=== PATIENT | male | born 1955 | race Caucasian/White ===

== ENCOUNTER 2021-05-04 20:55 | Inpatient (IN) ==
[2021-05-04] MEDS ORDERED: SODIUM CHLORIDE 0.9% 1000ML 1,000 ML IV STA (23:03)
--- NOTE | 2021-05-04 23:09 | Emergency Department Note ---
History of Present Illness General Chief complaint: Shortness of Breath/Dyspnea Stated complaint: SOB, COVID + Time Seen by Provider: 05/04/21 22:49 Source: patient and old records reviewed Mode of arrival: ambulatory Limitations: no limitations History of Present Illness This patient is 65-year-old male who was diagnosed with Covid yesterday comes in with increasing shortness of breath. He had both Covid vaccines from [facility]. He started feeling sick about a week ago with a cough and fever and shortness of breath the cough is resolved he just short of breath he has fevers intermittently he thinks he is keeping up with his fluids but is very nauseated. No abdominal pain no chest pain. He feels body aches. He has no underlying lung disease. No sick contacts although several people at [facility] had Covid Home Medications Medication Instructions Recorded Confirmed Type atorvastatin 80 mg tablet 80 mg PO HS 05/04/21 05/05/21 History glipizide 5 mg tablet 10 mg PO BID 05/04/21 05/05/21 History hydrocodone 5 mg-acetaminophen 325 1 tab PO Q6 PRN 05/04/21 05/05/21 History mg tablet levofloxacin 750 mg tablet 750 mg PO DAILY 05/04/21 05/05/21 History metformin 1,000 mg tablet 1,000 mg PO BID 05/04/21 05/05/21 History pregabalin 50 mg capsule 50 mg PO BID 05/04/21 05/05/21 History sitagliptin 100 mg tablet (Januvia) 100 mg PO DAILY 05/04/21 05/05/21 History Allergies Allergy/AdvReac Type Severity Reaction Status Date / Time No Known Allergies Allergy Unverified 05/04/21 23:29 Past Med/Surg History Medical History DMII (diabetes mellitus, type 2) LEONA (obstructive sleep apnea) Osteoarthritis of right knee Peripheral neuropathy Surgical History No history of previous surgery Family History Other Family history non-contributory Social History Smoking Status: Never smoker Hx Alcohol Use: No Hx Substance Use: No Preferred Language: Greek Communication Ability: Effective Beliefs That Will Affect Care: None Current Living Situation: Spouse Feels Safe at Home: Yes Safety Concerns: Feels Safe At This Time Assistive Devices: None Review of Systems A total of 10 systems reviewed and were otherwise negative Physical Exam Vital Signs Vital Signs - 24 hr 05/04/21 21:00 05/04/21 23:30 05/05/21 00:01 Temperature 36.9 C Temperature Source Temporal Artery Scan Pulse Rate 100 H 81 89 Pulse Rate from SpO2 Sensor 82 89 Pulse Rhythm Regular Pulse Strength Normal Respiratory Rate 22 48 H 24 Blood Pressure 123/77 111/60 116/77 Blood Pressure Mean 92 77 90 Blood Pressure Position Sitting Pulse Oximetry 94 96 96 Oxygen Delivery Method Room Air Sepsis Recent Fever Within 48 Hours No Sepsis New/Unexplained Change in Mental Status N/A Sepsis Action Taken by Nursing No Action Required 05/05/21 00:32 05/05/21 01:00 05/05/21 01:30 Temperature Temperature Source Pulse Rate 102 H 79 78 Pulse Rate from SpO2 Sensor 79 78 Pulse Rhythm Pulse Strength Respiratory Rate 20 20 20 Blood Pressure 174/88 H 135/70 124/71 Blood Pressure Mean 116 91 88 Blood Pressure Position Pulse Oximetry 96 96 Oxygen Delivery Method Sepsis Recent Fever Within 48 Hours Sepsis New/Unexplained Change in Mental Status Sepsis Action Taken by Nursing 05/05/21 02:00 05/05/21 02:30 05/05/21 03:01 Temperature Temperature Source Pulse Rate 85 81 83 Pulse Rate from SpO2 Sensor 86 82 85 Pulse Rhythm Pulse Strength Respiratory Rate 17 22 29 H Blood Pressure 120/60 127/57 L 135/81 Blood Pressure Mean 80 80 99 Blood Pressure Position Pulse Oximetry 94 97 97 Oxygen Delivery Method Sepsis Recent Fever Within 48 Hours Sepsis New/Unexplained Change in Mental Status Sepsis Action Taken by Nursing 05/05/21 03:30 Temperature Temperature Source Pulse Rate 71 Pulse Rate from SpO2 Sensor 70 Pulse Rhythm Pulse Strength Respiratory Rate 25 H Blood Pressure 108/59 L Blood Pressure Mean 75 Blood Pressure Position Pulse Oximetry 97 Oxygen Delivery Method Sepsis Recent Fever Within 48 Hours Sepsis New/Unexplained Change in Mental Status Sepsis Action Taken by Nursing General: Well developed well nourished older male who appears mildly tachypneic but otherwise in no acute distress, on room air. Normal speech HEENT: Normal cephalic atraumatic. Pupils are equal round and reactive to light. Extraocular movements are intact. Oropharynx is pink with moist mucous membranes. No swelling of the mouth lips or tongue. Neck: Supple with a midline trachea. No meningeal signs or stiffness, no JVD or bruits. No Stridor. Chest: Clear to auscultation bilaterally. No wheezes or rhonchi. No increased work of breathing. Heart: Regular rate and rhythm without murmurs or gallops. Abdomen: Soft nontender, nondistended without rebound guarding or rigidity. Extremities: No cyanosis clubbing or edema. No calf tenderness or assymetry Spine/Back. Non tender to palpation. No CVA tenderness Skin: Good turgor without rashes. Neurologic exam: Cranial nerves two through 12 are intact. Motor and sensation are intact and symmetrical throughout. Course Administered Medications Insulin Aspart (Insulin Aspart 100 Units/Ml 3 Ml Pen) 0 units SC ACHS GABRIELA Stop: 06/04/21 13:48 Last Admin: 05/05/21 17:55 Dose: 3 units Documented by: [id number] Cosigned by: [id number] Admin: 05/05/21 16:13 Dose: Not Given Documented by: [id number] Insulin Glargine (Insulin Glargine Solostar 100 Units/Ml 3 Ml Pen) 15 units SC BID GABRIELA Stop: 06/04/21 13:59 Last Admin: 05/05/21 17:55 Dose: 15 units Documented by: [id number] Cosigned by: [id number] Pregabalin (Pregabalin 50 Mg Cap) 50 mg PO BID GABRIELA Stop: 06/04/21 13:48 Last Admin: 05/05/21 15:16 Dose: 50 mg Documented by: [id number] Discontinued Medications Sodium Chloride (Nss 1000ml) 1,000 mls @ 999 mls/hr IV .Q1H1M STA Stop: 05/05/21 00:03 Last Infusion: 05/05/21 02:41 Dose: 0 mls/hr Documented by: [id number] Admin: 05/04/21 23:29 Dose: 999 mls/hr Documented by: [id number] Ioversol (Optiray 320 125ml) 119 ml IV ONCE ONE Stop: 05/05/21 02:20 Last Admin: 05/05/21 02:19 Dose: 119 ml Documented by: [id number] Medical Decision Making Differential Diagnosis Covid, PE, cardiac disease, myocarditis/pericarditis, sepsis, electrolyte or metabolic abnormality, dehydration Medical Records Attestation: I reviewed the patient's medical records. Home Medications Current Medication List: was personally reviewed by me Laboratory Data Attestation: I reviewed the patient's lab results. Result diagrams: 05/04/21 Unknown 05/04/21 Unknown Lab Results 05/04/21 05/04/21 05/04/21 Range/Units 23:30 23:30 Unknown WBC (4.8-10.8) K/uL RBC (4.7-6.1) M/uL Hgb (14.0-18.0) g/dL Hct (42-52) % MCV (80-100) fL MCH (25-34) pg MCHC (32-36) g/dL RDW Std Deviation (36.4-46.3) fL RDW Coeff of Lori (11.5-14.5) % Plt Count (130-400) K/uL MPV (7.4-10.4) fL Immature Gran % (Auto) % Neut % (Auto) % Lymph % (Auto) % [place] % (Auto) % Eos % (Auto) % Baso % (Auto) % Neut # (Auto) (1.4-6.5) K/uL Lymph # (Auto) (1.2-3.4) K/uL [place] # (Auto) (0.11-0.59) K/uL Eos # (Auto) (0-0.5) K/uL Baso # (Auto) (0-0.2) K/uL Immature Gran # (Auto) (0.00-0.02) K/uL APTT 26.5 (21.0-31.0) Seconds PTT Ratio 1.0 D-Dimer 1500 H* (0-500) ug/L FEU Sodium (136-145) mmol/L Potassium (3.5-5.1) mmol/L Chloride (98-107) mmol/L Carbon Dioxide (21-32) mmol/L Anion Gap (3-11) BUN (7-18) mg/dl Creatinine (0.6-1.4) mg/dl Est Cr Clr Drug Dosing Est GFR ( Amer) ml/min Est GFR (Non-Af Amer) ml/min BUN/Creatinine Ratio (10-20) Glucose (70-99) mg/dl Calcium (8.5-10.1) mg/dl Total Bilirubin (0.2-1) mg/dl AST (15-37) U/L ALT (12-78) U/L Alkaline Phosphatase (45-117) U/L Troponin I (0-0.045) ng/ml NT-Pro-B Natriuret Pep (0-900) pg/ml Total Protein (6.4-8.2) gm/dl Albumin (3.4-5.0) gm/dl Globulin (2.5-4.0) gm/dl Albumin/Globulin Ratio (0.9-2) Lipase (73-393) U/L COVID-19 Eval Order Covid19 at [facility] SARS-CoV-2 (PCR) POSITIVE A* (Negative) 05/04/21 05/04/21 05/04/21 Range/Units Unknown Unknown Unknown WBC 9.26 (4.8-10.8) K/uL RBC 4.62 L (4.7-6.1) M/uL Hgb 12.7 L (14.0-18.0) g/dL Hct 37.2 L (42-52) % MCV 80.5 (80-100) fL MCH 27.5 (25-34) pg MCHC 34.1 (32-36) g/dL RDW Std Deviation 42.8 (36.4-46.3) fL RDW Coeff of Lori 14.5 (11.5-14.5) % Plt Count 326 (130-400) K/uL MPV 9.6 (7.4-10.4) fL Immature Gran % (Auto) 0.3 % Neut % (Auto) 84.6 % Lymph % (Auto) 7.1 % [place] % (Auto) 7.8 % Eos % (Auto) 0.1 % Baso % (Auto) 0.1 % Neut # (Auto) 7.83 H (1.4-6.5) K/uL Lymph # (Auto) 0.66 L (1.2-3.4) K/uL [place] # (Auto) 0.72 H (0.11-0.59) K/uL Eos # (Auto) 0.01 (0-0.5) K/uL Baso # (Auto) 0.01 (0-0.2) K/uL Immature Gran # (Auto) 0.03 H (0.00-0.02) K/uL APTT Cancelled (21.0-31.0) Seconds PTT Ratio Cancelled D-Dimer (0-500) ug/L FEU Sodium 129 L (136-145) mmol/L Potassium 3.5 (3.5-5.1) mmol/L Chloride 99 (98-107) mmol/L Carbon Dioxide 19 L (21-32) mmol/L Anion Gap 11.0 (3-11) BUN 19 H (7-18) mg/dl Creatinine 1.06 (0.6-1.4) mg/dl Est Cr Clr Drug Dosing Not Reportable Est GFR ( Amer) 83.8 ml/min Est GFR (Non-Af Amer) 72.3 ml/min BUN/Creatinine Ratio 18.1 (10-20) Glucose 172 H (70-99) mg/dl Calcium 8.6 (8.5-10.1) mg/dl Total Bilirubin 0.8 (0.2-1) mg/dl AST 32 (15-37) U/L ALT 24 (12-78) U/L Alkaline Phosphatase 91 (45-117) U/L Troponin I < 0.015 (0-0.045) ng/ml NT-Pro-B Natriuret Pep 47 (0-900) pg/ml Total Protein 7.4 (6.4-8.2) gm/dl Albumin 2.7 L (3.4-5.0) gm/dl Globulin 4.7 H (2.5-4.0) gm/dl Albumin/Globulin Ratio 0.6 L (0.9-2) Lipase 343 (73-393) U/L COVID-19 Eval Order SARS-CoV-2 (PCR) (Negative) Imaging Data Attestation: I personally reviewed and interpreted this imaging study as follows: My Impression: Chest x-raymild increased ischial markings bilaterally inferiorly likely consistent with Covid Radiologist's Impression: Chest X-Ray 05/04/21 23:03 SINGLE VIEW CHEST CLINICAL HISTORY: Atypical chest pain. Covid. FINDINGS: An AP, portable, upright chest radiograph is compared to study dated 10/07/2014. The examination is degraded by portable technique and apical lordotic positioning. The heart is enlarged. The pulmonary vasculature is noncongested. There is chronic elevation of the right hemidiaphragm. There are subtle subpleural and bibasilar airspace opacities. No large pleural effusion or pneumothorax is seen. The skeletal structures are osteopenic. The bony thorax is grossly intact. IMPRESSION: 1. There are subtle bilateral airspace opacities, likely corresponding to the reported history of a viral pneumonia. Clinical correlation will be required and radiographic follow-up to resolution is recommended. 2. Cardiomegaly without radiographic evidence of congestive failure. ACT 112: Negative or not required by law. Electronically signed by: Zak Lee M.D. 05/05/2021 7:39 AM Chest CTA 05/05/21 00:28 CT ANGIOGRAM OF THE CHEST CLINICAL HISTORY: Atypical chest pain. Dyspnea. Covid. COMPARISON STUDY: Chest x-ray dated 05/04/2021. TECHNIQUE: Following the IV administration of 119 cc of Optiray 320, CT angiogram of the chest was performed from the upper abdomen to the thoracic inlet utilizing the pulmonary embolus protocol. Images are reviewed in the axial, sagittal, and coronal planes. 3-D MIPS images are created and assessed. IV contrast was administered without complication. A dose lowering technique was utilized adhering to the principles of ALARA. CT DOSE: 342.82 mGy.cm FINDINGS: Thyroid: Imaged portions of the thyroid gland are normal in size and attenuation. Thoracic aorta: The thoracic aorta is normal in caliber and demonstrates standard 3-vessel arch anatomy. No dissection is seen. Pulmonary vasculature: The pulmonary trunk is normal in caliber. There are no filling defects identified in main, lobar, or segmental pulmonary branches to suggest pulmonary embolus. Heart: The heart is enlarged and without pericardial effusion. Lungs and pleural spaces: There is multifocal groundglass consolidation seen throughout both lungs with a subpleural and lower lobe predominance. No pleural effusion is identified. The trachea and central airways are clear. There is a 4 mm left apical pulmonary nodule seen on image #213. Mediastinum: Scattered subcentimeter mediastinal lymph nodes are not pathologically enlarged by size criteria. Josette: There are calcified left hilar nodes. Prominent hilar nodes measure up to 11 mm in short axis. These are likely reactive. Axillae: There is no axillary lymphadenopathy. Upper abdomen: There is a small to moderate hiatal hernia. Numerous calcified granulomas are present in the spleen. Skeletal structures: No lytic or blastic bony lesions are seen. IMPRESSION: 1. There is no evidence of pulmonary embolus in the main, lobar, or segmental pulmonary arteries. 2. Multifocal groundglass consolidation is consistent with the reported history of a viral pneumonia. Radiographic follow-up to resolution is recommended. 3. A 4 mm pulmonary nodule is noted at the left apex. This is pathologically indeterminant and can be followed as per the Fleischner criteria if clinically warranted. See below. 4. Cardiomegaly. 5. Additional findings as above. Please refer to below summary of Fleischner criteria recommendations for follow- up of incidental CT nodules (Jacob Rucker, Guidelines for management of small pul monary nodules detected on CT scans: A statement from the Fleischner Society, Radiology 237: [phone].) SOLID NODULES Solitary nodule size: <6 mm * low risk patients: no follow-up needed * high risk patients: optional CT at 12 months Solitary nodule size: 6-8 mm * low risk patients: follow-up at 6-12 months, then consider further follow-up at 18-24 months * high risk patients: initial follow-up CT at 6-12 months and then at 18-24 months if no change Solitary nodule size: >8 mm * either low or high risk patients - consider follow-up CT at 3 months, and/or CT-PET, and/or biopsy Multiple nodules size: <6 mm * low risk patients: no routine follow-up * high risk patients: optional CT at 12 months Multiple nodules size: 6-8 mm * low risk patients: follow-up at 3-6 months, then consider further follow-up at 18-24 months * high risk patients: follow-up at 3-6 months, then at 18-24 months if no change Multiple nodules size: >8 mm * low risk patients: follow-up at 3-6 months, then consider further follow-up at 18-24 months * high risk patients: follow-up at 3-6 months, then at 18-24 months if no change Note: newly detected indeterminate nodule in persons 35 years of age or older. * low risk patients: minimal or absent history of smoking and/or other known risk factors * high risk patients: history of smoking or of other known risk factors (e.g. first degree relative with lung cancer, or exposure to asbestos, radon, uranium) * if a nodule up to 8 mm is partly solid or is ground glass further follow-up is required after 24 months to exclude possible slow growing adenocarcinoma (GENI) SUBSOLID NODULES Solitary pure ground-glass nodule * nodule size <6 mm - no CT follow-up required * nodule size >=6 mm - follow-up CT at 6-12 months, then every 2 years until 5 years Solitary part-solid nodule * nodule size <6 mm - no CT follow-up required * nodule size >=6 mm - follow-up CT at 3-6 months. If unchanged, and solid component remains <6 mm, then annual follow-up for 5 years Multiple subsolid nodules * nodule size <6 mm - follow-up CT at 3-6 months, consider further follow-up at 2 and 4 years if stable * nodule size >=6 mm - follow-up CT at 3-6 months, subsequent management based on the most suspicious nodule(s) ACT 112: Negative or not required by law. Electronically signed by: Zak Lee M.D. 05/05/2021 8:03 AM ECG Data Attestation: I personally reviewed and interpreted this ECG as follows: Indication: + SOB/dyspnea Rate (beats per minute): 86 Rhythm: + normal sinus ECG Intervals/blocks: + Normal QRS, + Normal QT and + Normal [place] ECG [place]: + Normal ECG ST segments: + Normal ST segments ECG Findings: no PACs or no PVCs Comparison ECG Date: from (10/17/14) Change: no significant change MDM Narrative This patient comes in as described above he has a history of recently being diagnosed with Covid. He did have the vaccine. On my exam he does appear to be tachypneic. IV access was established and she was hydrated with a 500 cc IV normal saline bolus. chest x-ray, multiple blood testing was obtained as well as EKG. He was reassessed frequently. His chest x-ray shows some increased interstitial markings in the base and also perihilar likely consistent with Covid. EKG does not show any ischemic changes troponin is negative. he has no significant electrolyte or metabolic abnormalities. D-dimer is elevated at 1500. I did order a CTA and there is no evidence of PE but there are diffuse findings consistent with Covid. Despite him vital signs looking okay he does seem to be tachypneic and does not look well I am concerned about sending him home and I have asked Dr. Coffey to see him for admission/observation. Continuous cardiac monitoring: Orders placed in EMR for continuous cardiac monitoring normal sinus rhythm with a rate of 85 Impression & Plan COVID, SOB (shortness of breath) Discharge Plan Visit Data Chief Complaint: Shortness of Breath/Dyspnea Stated Complaint: SOB, COVID + ED Provider: [facility] Discharge Problem: COVID, SOB (shortness of breath) Patient Disposition: Admitted As Inpatient Discharge Instructions Interventions: ED Discharge Assessment Last Done: 05/05/21 17:31
[2021-05-04 23:48] LABS: Basophils # (auto) 0.01 K/uL (0-0.2); Basophils % (auto) 0.1 %; Eosinophils # (auto) 0.01 K/uL (0-0.5); Eosinophils % (auto) 0.1 %; Hematocrit (blood only) 37.2 % (42-52); Hemoglobin 12.7 g/dL (14.0-18.0); Immature Granulocytes # (auto) 0.03 K/uL (0.00-0.02); Immature Granulocytes % (auto) 0.3 %; Lymphocytes # (auto) 0.66 K/uL (1.2-3.4); Lymphocytes % (auto) 7.1 %; Mean Corpuscular Hemoglobin 27.5 pg (25-34); Mean Corpuscular Hgb Conc 34.1 g/dL (32-36); Mean Corpuscular Volume 80.5 fL (80-100); Mean Platelet Volume 9.6 fL (7.4-10.4); Monocytes # (auto) 0.72 K/uL (0.11-0.59); Monocytes % (auto) 7.8 %; Neutrophils # (auto) 7.83 K/uL (1.4-6.5); Neutrophils % (auto) 84.6 %; Platelet Count 326 K/uL (130-400); RDW Coefficient of Variation 14.5 % (11.5-14.5); RDW Standard Deviation 42.8 fL (36.4-46.3); Red Blood Count 4.62 M/uL (4.7-6.1); White Blood Count 9.26 K/uL (4.8-10.8)
[2021-05-05 00:06] LABS: Partial Thromboplastin Time 26.5 Seconds (21.0-31.0)
[2021-05-05 00:09] LABS: Albumin Level 2.7 gm/dl (3.4-5.0); BUN Creatinine Ratio 18.1 (10-20); Bilirubin,Total 0.8 mg/dl (0.2-1); Blood Urea Nitrogen 19 mg/dl (7-18); Calcium 8.6 mg/dl (8.5-10.1); Carbon Dioxide 19 mmol/L (21-32); Chloride 99 mmol/L (98-107); Est GFR (African American) 83.8 ml/min; Est GFR (Non-African American) 72.3 ml/min; Glucose 172 mg/dl (70-99); Lipase 343 U/L (73-393); Potassium 3.5 mmol/L (3.5-5.1); Sodium 129 mmol/L (136-145)
[2021-05-05 00:15] LABS: Alanine Aminotransferase 24 U/L (12-78); Albumin Globulin Ratio 0.6 (0.9-2); Alkaline Phosphatase 91 U/L (45-117); Aspartate Aminotransferase 32 U/L (15-37); Globulin 4.7 gm/dl (2.5-4.0); Total Protein 7.4 gm/dl (6.4-8.2); Troponin I < 0.015 ng/ml (0-0.045)
[2021-05-05 00:20] LABS: D Dimer 1500 ug/L FEU (0-500)
[2021-05-05 00:56] LABS: NT Pro B Type Natriuretic Pept 47 pg/ml (0-900)
[2021-05-05] MEDS ORDERED: OPTIRAY 320 125ml IV ONE (02:19)
--- NOTE | 2021-05-05 03:49 | History & Physical Report ---
Date of Service May 05, 2021 Assessment & Plan (1) Pneumonia due to COVID-19 virus: Plan: Pneumonia present on chest x-ray. With worsening tachypnea and pleurisy and overall clinical picture, despite the fact patient is not hypoxic, will bring him in for observation. Encourage patient to prone. No indication for steroids or remdesivir at this time. Supportive care as needed with Motrin, cough syrup etc. notably here appears euvolemic on exam (2) Hyponatremia: Plan: Sodium 129 probably related to poor p.o. intake. He received 500 cc of normal saline in the ER. Trend BMP. Supportive care during this Covid pneumonia illness. P.o. intake likely to be low especially with loss of taste sensation. (3) DMII (diabetes mellitus, type 2): Plan: Complicated by peripheral neuropathy. A1c pending. Hold p.o. medications and use basal bolus insulin while hospitalized. (4) DVT prophylaxis: Plan: Lovenox Full code Disposition-to Covid unit Kayla Coffey DO [facility] Hospitalist History of Present Illness Chief Complaint: worsening breathing Primary Care Provider: Tanisha Goodrich DO Symptoms of COVID-19 began last week with shortness of breath, chest pain, fever and cough. Denies diarrhea, headache. Reports a loss of sense of taste and loss of appetite. No vomiting or nausea. Pleurisy present. Went to see his primary care doctor yesterday and received levofloxacin for pneumonia. He did take 1 dose. Tested positive for SARS-CoV-2 infection. Notably is also sick with symptoms at home and is wheelchair-bound. He did receive a Covid vaccination series. In the ER the patient was observed to be tachypneic. EKG reveals normal sinus rhythm. No electrolyte or metabolic abnormalities on work-up. D-dimer was elevated at 1500. A CT chest was performed revealing no evidence of pulmonary emboli. Allergies Allergy/AdvReac Type Severity Reaction Status Date / Time No Known Allergies Allergy Unverified 05/04/21 23:29 Home Medications Medication Instructions Recorded Confirmed Type atorvastatin 80 mg tablet 80 mg PO HS 05/04/21 05/05/21 History glipizide 5 mg tablet 10 mg PO BID 05/04/21 05/05/21 History hydrocodone 5 mg-acetaminophen 325 1 tab PO Q6 PRN 05/04/21 05/05/21 History mg tablet levofloxacin 750 mg tablet 750 mg PO DAILY 05/04/21 05/05/21 History metformin 1,000 mg tablet 1,000 mg PO BID 05/04/21 05/05/21 History pregabalin 50 mg capsule 50 mg PO BID 05/04/21 05/05/21 History sitagliptin 100 mg tablet (Januvia) 100 mg PO DAILY 05/04/21 05/05/21 History Past Med/Surg History Medical History DMII (diabetes mellitus, type 2) LEONA (obstructive sleep apnea) Osteoarthritis of right knee Peripheral neuropathy Surgical History No history of previous surgery Family History Other Family history non-contributory Social History Smoking Status: Never smoker Preferred Language: Setswana Feels Safe at Home: Yes Review of Systems Review of Systems: At least ten systems were reviewed and negative except as indicated in HPI above. Physical Exam Physical Exam: CONSTITUTIONAL: WNWD, vitals as above, generally ill- appearing, NAD EYES: EOMI bilaterally, PERRL, normal conjunctivae, no scleral icterus ENT: external ear and nose normal, oropharynx clear, MMM NECK: trachea midline RESPIRATORY: occasional crackles yumi at bases, no rales or wheezes, normal to slightly increased respiratory effort CARDIOVASCULAR: regular rate and rhythm, S1 and 2 heard without murmurs, gallops or rubs, no JVD, no peripheral edema CHEST: inspection of chest was normal GASTROINTESTINAL: soft, nontender, ND, no guarding MUSCULOSKELETAL: strength 5/5 throughout, head is normocephalic and atraumatic SKIN: warm and dry NEUROLOGIC: CN 2-12 grossly intact, no sensory deficit, normal cognition, normal speech, no tremor PSYCHIATRIC: alert cooperative and oriented to person, place and time. Results & Data Results & Data ([facility]) Vital Signs (Past 12 Hours) Vital Signs Temp Pulse Resp BP Pulse Ox 05/05/21 02:00 85 17 120/60 94 05/05/21 01:30 78 20 124/71 96 05/05/21 01:00 79 20 135/70 96 05/05/21 00:32 102 H 20 174/88 H 05/05/21 00:01 89 24 116/77 96 05/04/21 23:30 81 48 H 111/60 96 05/04/21 21:00 36.9 C 100 H 22 123/77 94 Laboratory Results Short CBC 05/04/21 Range/Units Unknown WBC 9.26 (4.8-10.8) K/uL Hgb 12.7 L (14.0-18.0) g/dL Hct 37.2 L (42-52) % Plt Count 326 (130-400) K/uL BMP 05/04/21 Unknown Sodium 129 L Potassium 3.5 Chloride 99 Carbon Dioxide 19 L BUN 19 H Creatinine 1.06 Glucose 172 H Calcium 8.6 Cardiac Enzymes 05/04/21 Range/Units Unknown Troponin I < 0.015 (0-0.045) ng/ml Liver Function 05/04/21 Range/Units Unknown Total Bilirubin 0.8 (0.2-1) mg/dl AST 32 (15-37) U/L ALT 24 (12-78) U/L Alkaline Phosphatase 91 (45-117) U/L Albumin 2.7 L (3.4-5.0) gm/dl Diagnostic Findings A CT chest was performed revealing no evidence of pulmonary emboli Code Status & VTE Plan VTE Prophylaxis Plan VTE Prophylaxis will be ordered: Yes
--- NOTE | 2021-05-05 07:41 | XRay Report ---
SINGLE VIEW CHEST CLINICAL HISTORY: Atypical chest pain. Covid. FINDINGS: An AP, portable, upright chest radiograph is compared to study dated 10/07/2014. The examinat ion is degraded by portable technique and apical lordotic positioning. The heart is enlarged. The pul monary vasculature is noncongested. There is chronic elevation of the right hemidiaphragm. There are subtle subpleural and bibasilar airspace opacities. No large pleural effusion or pneumothorax is seen . The skeletal structures are osteopenic. The bony thorax is grossly intact. IMPRESSION: 1. There are subtle bilateral airspace opacities, likely corresponding to the reported history of a v iral pneumonia. Clinical correlation will be required and radiographic follow-up to resolution is rec ommended. 2. Cardiomegaly without radiographic evidence of congestive failure. ACT 112: Negative or not required by law. Electronically signed by: Zak Lee M.D. 05/05/2021 7:39 AM
--- NOTE | 2021-05-05 08:04 | CT Scan Report ---
CT ANGIOGRAM OF THE CHEST CLINICAL HISTORY: Atypical chest pain. Dyspnea. Covid. COMPARISON STUDY: Chest x-ray dated 05/04/2021. TECHNIQUE: Following the IV administration of 119 cc of Optiray 320, CT angiogram of the chest was pe rformed from the upper abdomen to the thoracic inlet utilizing the pulmonary embolus protocol. Images are reviewed in the axial, sagittal, and coronal planes. 3-D MIPS images are created and assessed. I V contrast was administered without complication. A dose lowering technique was utilized adhering to the principles of ALARA. CT DOSE: 342.82 mGy.cm FINDINGS: Thyroid: Imaged portions of the thyroid gland are normal in size and attenuation. Thoracic aorta: The thoracic aorta is normal in caliber and demonstrates standard 3-vessel arch anato my. No dissection is seen. Pulmonary vasculature: The pulmonary trunk is normal in caliber. There are no filling defects identif ied in main, lobar, or segmental pulmonary branches to suggest pulmonary embolus. Heart: The heart is enlarged and without pericardial effusion. Lungs and pleural spaces: There is multifocal groundglass consolidation seen throughout both lungs wi th a subpleural and lower lobe predominance. No pleural effusion is identified. The trachea and centr al airways are clear. There is a 4 mm left apical pulmonary nodule seen on image #213. Mediastinum: Scattered subcentimeter mediastinal lymph nodes are not pathologically enlarged by size criteria. Josette: There are calcified left hilar nodes. Prominent hilar nodes measure up to 11 mm in short axis. These are likely reactive. Axillae: There is no axillary lymphadenopathy. Upper abdomen: There is a small to moderate hiatal hernia. Numerous calcified granulomas are present in the spleen. Skeletal structures: No lytic or blastic bony lesions are seen. IMPRESSION: 1. There is no evidence of pulmonary embolus in the main, lobar, or segmental pulmonary arteries. 2. Multifocal groundglass consolidation is consistent with the reported history of a viral pneumonia. Radiographic follow-up to resolution is recommended. 3. A 4 mm pulmonary nodule is noted at the left apex. This is pathologically indeterminant and can be followed as per the Fleischner criteria if clinically warranted. See below. 4. Cardiomegaly. 5. Additional findings as above. Please refer to below summary of Fleischner criteria recommendations for follow-up of incidental CT n odules Alexandra Rucker, Guidelines for management of small pulmonary nodules detected on CT scans: A mo durand from the Fleischner Society, Radiology 237: [phone].) SOLID NODULES Solitary nodule size: <6 mm * low risk patients: no follow-up needed * high risk patients: optional CT at 12 months Solitary nodule size: 6-8 mm * low risk patients: follow-up at 6-12 months, then consider further follow-up at 18-24 months * high risk patients: initial follow-up CT at 6-12 months and then at 18-24 months if no change Solitary nodule size: >8 mm * either low or high risk patients - consider follow-up CT at 3 months, and/or CT-PET, and/or biopsy Multiple nodules size: <6 mm * low risk patients: no routine follow-up * high risk patients: optional CT at 12 months Multiple nodules size: 6-8 mm * low risk patients: follow-up at 3-6 months, then consider further follow-up at 18-24 months * high risk patients: follow-up at 3-6 months, then at 18-24 months if no change Multiple nodules size: >8 mm * low risk patients: follow-up at 3-6 months, then consider further follow-up at 18-24 months * high risk patients: follow-up at 3-6 months, then at 18-24 months if no change Note: newly detected indeterminate nodule in persons 35 years of age or older. * low risk patients: minimal or absent history of smoking and/or other known risk factors * high risk patients: history of smoking or of other known risk factors (e.g. first degree relative with lung cancer, or exposure to asbestos, radon, uranium) * if a nodule up to 8 mm is partly solid or is ground glass further follow-up is required after 24 m onths to exclude possible slow growing adenocarcinoma (GENI) SUBSOLID NODULES Solitary pure ground-glass nodule * nodule size <6 mm - no CT follow-up required * nodule size >=6 mm - follow-up CT at 6-12 months, then every 2 years until 5 years Solitary part-solid nodule * nodule size <6 mm - no CT follow-up required * nodule size >=6 mm - follow-up CT at 3-6 months. If unchanged, and solid component remains <6 mm, then annual follow-up for 5 years Multiple subsolid nodules * nodule size <6 mm - follow-up CT at 3-6 months, consider further follow-up at 2 and 4 years if sta ble * nodule size >=6 mm - follow-up CT at 3-6 months, subsequent management based on the most suspiciou s nodule(s) ACT 112: Negative or not required by law. Electronically signed by: Zak Lee M.D. 05/05/2021 8:03 AM
--- NOTE | 2021-05-05 13:47 | Communication Note ---
Date of Service: May 05, 2021 Patient seen and examined Reports cough, shortness of breath, fatigue and some chest pain with coughing Currently on room air Will monitor for now No need for COVID specific therapies at this time Agree with other plans as detailed in H&P by Dr Coffey today
[2021-05-05] MEDS ORDERED: GLUCOSE 10 TABS/TUBE PO PRN (13:49)
[2021-05-05] MEDS ORDERED: HYDROCODONE/ACETAMOPHEN 5/325MG TAB PO PRN (13:49)
[2021-05-05] MEDS ORDERED: CARBOHYDRATES FOR HYPOGLYCEMIA PO PRN (13:49)
[2021-05-05] MEDS ORDERED: ACETAMINOPHEN 325 MG TAB PO PRN (13:49)
[2021-05-05] MEDS ORDERED: DEXTROSE 50% 50 ML SYRINGE IV PRN (13:49)
[2021-05-05] MEDS ORDERED: GLUCOSE 40% GEL 15 GM TUBE PO PRN (13:49)
[2021-05-05] MEDS ORDERED: ONDANSETRON INJ 2 MG/ML 2 ML VIAL IV PRN (13:49)
[2021-05-05] MEDS ORDERED: GLUCAGON FOR INJ 1 MG VIAL SQ PRN (13:49)
[2021-05-05] MEDS: PREGABALIN 50 MG CAP PO SCH ×2 (15:16→22:04)
[2021-05-05] MEDS: INSULIN ASPART 100 UNITS/ML 3 ML PEN SC SCH ×3 (16:13→21:53)
[2021-05-05] MEDS: INSULIN GLARGINE SOLOSTAR 100 UNITS/ML 3 ML PEN SC SCH ×2 (17:55→22:11)
--- NOTE | 2021-05-05 22:27 | Electrocardiogram Report ---
Test Reason : Blood Pressure : / mmHG Vent. Rate : 086 BPM Atrial Rate : 086 BPM P-R Int : 166 ms QRS Dur : 104 ms QT Int : 380 ms P-R-T Axes : 023 -09 048 degrees QTc Int : 454 ms Normal sinus rhythm Normal ECG When compared with ECG of 07-OCT-2014 02:30, No significant change was found Confirmed by Donny Hines ([id number]) on 05/05/2021 10:26:47 PM Referred By: REFERRED SELF Confirmed By:Donny Hines
[2021-05-05] MEDS: ATORVASTATIN 40 MG TAB PO SCH (22:40)
[2021-05-06] MEDS: INSULIN ASPART 100 UNITS/ML 3 ML PEN SC SCH ×4 (08:36→21:34)
[2021-05-06] MEDS: PREGABALIN 50 MG CAP PO SCH ×2 (08:39→21:25)
[2021-05-06] MEDS: INSULIN GLARGINE SOLOSTAR 100 UNITS/ML 3 ML PEN SC SCH ×2 (08:44→21:34)
[2021-05-06 09:20] LABS: Hematocrit (blood only) 38.4 % (42-52); Hemoglobin 13.2 g/dL (14.0-18.0); Mean Corpuscular Hemoglobin 27.3 pg (25-34); Mean Corpuscular Hgb Conc 34.4 g/dL (32-36); Mean Corpuscular Volume 79.5 fL (80-100); Mean Platelet Volume 9.7 fL (7.4-10.4); Platelet Count 479 K/uL (130-400); RDW Coefficient of Variation 14.6 % (11.5-14.5); RDW Standard Deviation 42.1 fL (36.4-46.3); Red Blood Count 4.83 M/uL (4.7-6.1); White Blood Count 9.83 K/uL (4.8-10.8)
[2021-05-06 09:51] LABS: BUN Creatinine Ratio 17.3 (10-20); C Reactive Protein 13.2 mg/dl (0-0.29); Calcium 8.8 mg/dl (8.5-10.1); Creatinine Clr Calc Pharmacy 79.6 ml/min; Est GFR (African American) 95.6 ml/min; Est GFR (Non-African American) 82.5 ml/min; Magnesium 2.3 mg/dl (1.8-2.4); Phosphorus 2.6 mg/dl (2.5-4.9); Potassium 3.2 mmol/L (3.5-5.1)
[2021-05-06 09:58] LABS: Estimated Average Glucose 169 mg/dl; Hemoglobin A1C 7.5 % (4.5-5.6)
[2021-05-06] MEDS: BENZONATATE 100 MG CAPSULE PO SCH ×2 (13:23→21:26)
--- NOTE | 2021-05-06 15:29 | Hospitalist Progress Note ---
Date of Service May 06, 2021 Assessment & Plan (1) Pneumonia due to COVID-19 virus: Plan: Pneumonia present on chest x-ray. With worsening tachypnea and pleurisy and overall clinical picture, despite the fact patient is not hypoxic, will bring him in for observation. Encourage patient to prone. No indication for steroids or remdesivir at this time. Supportive care as needed with Motrin, cough syrup etc. notably here appears euvolemic on exam Has minimal cough and saturating normally on room air CRP is elevated at 13. 2 0 We will repeat it tomorrow as he might be leaving the hospital tomorrow Acute grievance Secondary to loss of his recently Sympathetic care (2) Hyponatremia: Plan: Sodium 129 probably related to poor p.o. intake. He received 500 cc of normal saline in the ER. Trend BMP. Supportive care during this Covid pneumonia illness. P.o. intake likely to be low especially with loss of taste sensation. Sodium level is 135 as on 05/06/2021 We will supplement potassium (3) DMII (diabetes mellitus, type 2): Plan: Complicated by peripheral neuropathy. A1c -7.5. Hold p.o. medications and use basal bolus insulin while hospitalized. (4) DVT prophylaxis: Plan: Lovenox Full code Disposition-to Covid unit Admission and Anticipated Discharge Date Admission Date: May 06, 2021 Subjective 05/06/2021 The patient was seen and examined in medical telemetry unit and in the Covid room He is very anxious and upset that his yesterday Has been getting cough with shortness of breath on exertion Complaint chest pain with the cough Review of Systems Review of Systems: All systems reviewed and are unremarkable except as noted below Respiratory: Cough with shortness of breath on exertion Physical Exam Physical Exam: Sitting on a chair without any acute distress but is very anxious Constitutional: well developed, well nourished and + ill appearing Eyes: PERRL, conjunctivae normal, anicteric sclerae ENMT: external ear and nose normal, oropharynx normal Neck: trachea midline, no thyromegaly Respiratory: + cough; no respiratory distress Auscultation: + diminished lung sounds (At the bases); no crackles Gastrointestinal (Abdomen): Inspection/Auscultation: abdomen not distended Percussion/Palpation: abdomen soft; abdomen nontender Musculoskeletal: No acute arthritis in any joint Neurologic: Alert, awake and oriented x3 Results & Data Results & Data ([facility]) Vital Signs (Past 12 Hours) Vital Signs Temp Pulse Pulse Resp BP Pulse Ox 05/06/21 12:23 36.3 C L 82 16 119/76 96 05/06/21 07:50 36.6 C 75 18 103/53 L 94 05/06/21 07:24 66 05/06/21 04:00 36.8 C 75 18 105/60 93 Laboratory Results Short CBC 05/06/21 Range/Units 08:43 WBC 9.83 (4.8-10.8) K/uL Hgb 13.2 L (14.0-18.0) g/dL Hct 38.4 L (42-52) % Plt Count 479 H (130-400) K/uL BMP 05/06/21 08:43 Sodium 135 L Potassium 3.2 L Chloride 102 Carbon Dioxide 22 BUN 17 Creatinine 0.95 Glucose 154 H Calcium 8.8 Medications Administered Current Inpatient Medications Acetaminophen (Acetaminophen 325 Mg Tab) 650 mg PO Q4H PRN PRN Reason: Pain or Fever Stop: 06/04/21 13:48 Hydrocodone Bitart/Acetaminophen (Hydrocodone/Acetamophen 5/325mg Tab) 1 tab PO Q6 PRN PRN Reason: Pain Stop: 05/19/21 13:48 Atorvastatin Calcium (Atorvastatin 40 Mg Tab) 80 mg PO HS [facility] Stop: 06/04/21 20:59 Last Admin: 05/05/21 22:40 Dose: 80 mg Documented by: Benzonatate (Benzonatate 100 Mg Capsule) 100 mg PO TID [facility] Stop: 06/05/21 13:59 Last Admin: 05/06/21 13:23 Dose: 100 mg Documented by: Dextrose (Dextrose 50% 50 Ml Syringe) 25 - 50 ml IV UD PRN; Protocol PRN Reason: Hypoglycemia Protocol Stop: 06/04/21 13:48 Glucagon (Glucagon For Inj 1 Mg Vial) 1 mg SQ UD PRN; Protocol PRN Reason: Hypoglycemia Protocol Stop: 06/04/21 13:48 Glucose (Glucose 10 Tabs/Tube) 4 - 8 tabs PO UD PRN; Protocol PRN Reason: Hypoglycemia Protocol Stop: 06/04/21 13:48 Glucose (Glucose 40% Gel 15 Gm Tube) 15 - 30 gm PO UD PRN; Protocol PRN Reason: Hypoglycemia Protocol Stop: 06/04/21 13:48 Guaifenesin (Guaifenesin 600 Mg Tabcr) 1,200 mg PO Q12 [facility] Stop: 06/05/21 20:59 Insulin Aspart (Insulin Aspart 100 Units/Ml 3 Ml Pen) 0 units SC ACHS [facility] Stop: 06/04/21 13:48 Last Admin: 05/06/21 12:20 Dose: Not Given Documented by: Insulin Glargine (Insulin Glargine Solostar 100 Units/Ml 3 Ml Pen) 15 units SC BID [facility] Stop: 06/04/21 13:59 Last Admin: 05/06/21 08:44 Dose: 15 units Documented by: Miscellaneous (Carbohydrates For Hypoglycemia ) 15 - 30 gm PO UD PRN PRN Reason: Hypoglycemia Protocol Stop: 06/04/21 13:48 Ondansetron HCl (Ondansetron Inj 2 Mg/Ml 2 Ml Vial) 4 mg IV Q6H PRN PRN Reason: Nausea Stop: 06/04/21 13:48 Pregabalin (Pregabalin 50 Mg Cap) 50 mg PO BID [facility] Stop: 06/04/21 13:48 Last Admin: 05/06/21 08:39 Dose: 50 mg Documented by:
[2021-05-06] MEDS: guaiFENesin 600 MG TABCR PO SCH (21:24)
[2021-05-06] MEDS: ATORVASTATIN 40 MG TAB PO SCH (21:26)
[2021-05-07] MEDS: guaiFENesin 600 MG TABCR PO SCH ×2 (08:25→22:03)
[2021-05-07] MEDS: PREGABALIN 50 MG CAP PO SCH ×2 (08:26→22:10)
[2021-05-07] MEDS: BENZONATATE 100 MG CAPSULE PO SCH ×3 (08:26→22:03)
[2021-05-07] MEDS: INSULIN GLARGINE SOLOSTAR 100 UNITS/ML 3 ML PEN SC SCH ×2 (08:33→22:25)
[2021-05-07] MEDS: INSULIN ASPART 100 UNITS/ML 3 ML PEN SC SCH ×4 (08:33→22:24)
[2021-05-07 08:51] LABS: BUN Creatinine Ratio 17.4 (10-20); C Reactive Protein 11.4 mg/dl (0-0.29); Calcium 8.7 mg/dl (8.5-10.1); Creatinine Clr Calc Pharmacy 73.8 ml/min; Est GFR (African American) 87.7 ml/min; Est GFR (Non-African American) 75.7 ml/min; Potassium 3.1 mmol/L (3.5-5.1)
[2021-05-07] MEDS: POTASSIUM CHLORIDE CRTAB 20 MEQ TABCR PO STA ×2 (10:19→10:21)
[2021-05-07] MEDS: POTASSIUM CHLORIDE / WTR 10 MEQ/100 ML PLCT IV SCH ×4 (10:52→17:25)
--- NOTE | 2021-05-07 15:47 | Hospitalist Progress Note ---
Date of Service May 07, 2021 Assessment & Plan (1) Pneumonia due to COVID-19 virus: Plan: Pneumonia present on chest x-ray. With worsening tachypnea and pleurisy and overall clinical picture, despite the fact patient is not hypoxic, will bring him in for observation. Encourage patient to prone. No indication for steroids or remdesivir at this time. Supportive care as needed with Motrin, cough syrup etc. notably here appears euvolemic on exam Has minimal cough and saturating normally on room air CRP is elevated at 13.2 0 Complains more cough but saturating normally on room air We will repeat CRP and procalcitonin tomorrow Acute grievance Secondary to loss of his recently Sympathetic care Likely go home tomorrow following PT and OT evaluation (2) Hyponatremia: Plan: Sodium 129 probably related to poor p.o. intake. He received 500 cc of normal saline in the ER. Trend BMP. Supportive care during this Covid pneumonia illness. P.o. intake likely to be low especially with loss of taste sensation. Sodium level is 135 as on 05/06/2021 We will supplement potassium We will give more potassium IV-monitor PRP (3) DMII (diabetes mellitus, type 2): Plan: Complicated by peripheral neuropathy. A1c -7.5. Hold p.o. medications and use basal bolus insulin while hospitalized. (4) DVT prophylaxis: Plan: Lovenox Full code Disposition-to Covid unit Admission and Anticipated Discharge Date Admission Date: May 06, 2021 Subjective 05/06/2021 The patient was seen and examined in medical telemetry unit and in the Covid room He is very anxious and upset that his yesterday Has been getting cough with shortness of breath on exertion Complaint chest pain with the cough 05/07/2021 The patient was seen and examined in medical telemetry unit and in the Covid room He remains weak and lethargic and is very depressed Has cough without any shortness of breath Review of Systems Review of Systems: All systems reviewed and are unremarkable except as noted below Respiratory: Cough with shortness of breath on exertion Physical Exam Physical Exam: Sitting on a chair without any acute distress but is very anxious Constitutional: well developed, well nourished and + ill appearing Eyes: PERRL, conjunctivae normal, anicteric sclerae ENMT: external ear and nose normal, oropharynx normal Neck: trachea midline, no thyromegaly Respiratory: + cough; no respiratory distress Auscultation: + diminished lung sounds (At the bases); no crackles Gastrointestinal (Abdomen): Inspection/Auscultation: abdomen not distended Percussion/Palpation: abdomen soft; abdomen nontender Musculoskeletal: No acute arthritis in any joint Neurologic: Alert, awake and oriented x3 Results & Data Results & Data ([facility]) Vital Signs (Past 12 Hours) Vital Signs Temp Pulse Pulse Resp BP Pulse Ox 05/07/21 15:31 96 H 05/07/21 11:00 36.5 C 85 20 119/75 93 05/07/21 07:36 74 05/07/21 07:00 37.1 C 82 18 115/74 95 05/07/21 04:00 37.2 C 80 18 125/72 92 Laboratory Results [facility] 05/07/21 08:05 Sodium 135 L Potassium 3.1 L Chloride 100 Carbon Dioxide 22 BUN 18 Creatinine 1.02 Glucose 134 H Calcium 8.7 Medications Administered Current Inpatient Medications Acetaminophen (Acetaminophen 325 Mg Tab) 650 mg PO Q4H PRN PRN Reason: Pain or Fever Stop: 06/04/21 13:48 Hydrocodone Bitart/Acetaminophen (Hydrocodone/Acetamophen 5/325mg Tab) 1 tab PO Q6 PRN PRN Reason: Pain Stop: 05/19/21 13:48 Atorvastatin Calcium (Atorvastatin 40 Mg Tab) 80 mg PO HS [facility] Stop: 06/04/21 20:59 Last Admin: 05/06/21 21:26 Dose: 80 mg Documented by: Benzonatate (Benzonatate 100 Mg Capsule) 100 mg PO TID [facility] Stop: 06/05/21 13:59 Last Admin: 05/07/21 13:31 Dose: 100 mg Documented by: Dextrose (Dextrose 50% 50 Ml Syringe) 25 - 50 ml IV UD PRN; Protocol PRN Reason: Hypoglycemia Protocol Stop: 06/04/21 13:48 Glucagon (Glucagon For Inj 1 Mg Vial) 1 mg SQ UD PRN; Protocol PRN Reason: Hypoglycemia Protocol Stop: 06/04/21 13:48 Glucose (Glucose 10 Tabs/Tube) 4 - 8 tabs PO UD PRN; Protocol PRN Reason: Hypoglycemia Protocol Stop: 06/04/21 13:48 Glucose (Glucose 40% Gel 15 Gm Tube) 15 - 30 gm PO UD PRN; Protocol PRN Reason: Hypoglycemia Protocol Stop: 06/04/21 13:48 Guaifenesin (Guaifenesin 600 Mg Tabcr) 1,200 mg PO Q12 [facility] Stop: 06/05/21 20:59 Last Admin: 05/07/21 08:25 Dose: 1,200 mg Documented by: Insulin Aspart (Insulin Aspart 100 Units/Ml 3 Ml Pen) 0 units SC ACHS [facility] Stop: 06/04/21 13:48 Last Admin: 05/07/21 12:31 Dose: 5 units Documented by: Insulin Glargine (Insulin Glargine Solostar 100 Units/Ml 3 Ml Pen) 15 units SC BID [facility] Stop: 06/04/21 13:59 Last Admin: 05/07/21 08:33 Dose: 15 units Documented by: Miscellaneous (Carbohydrates For Hypoglycemia ) 15 - 30 gm PO UD PRN PRN Reason: Hypoglycemia Protocol Stop: 06/04/21 13:48 Ondansetron HCl (Ondansetron Inj 2 Mg/Ml 2 Ml Vial) 4 mg IV Q6H PRN PRN Reason: Nausea Stop: 06/04/21 13:48 Pregabalin (Pregabalin 50 Mg Cap) 50 mg PO BID [facility] Stop: 06/04/21 13:48 Last Admin: 05/07/21 08:26 Dose: 50 mg Documented by:
[2021-05-07] MEDS: ATORVASTATIN 40 MG TAB PO SCH (22:03)
[2021-05-08] MEDS ORDERED: LEVALBUTEROL TARTRATE 15 GM HFA.AER.AD INH STA (04:07)
--- NOTE | 2021-05-08 04:10 | Communication Note ---
Date of Service: May 08, 2021 Notified by RN around 4 AM of patient O2 sats 84% on room air when patient got up to go to the bathroom. Patient currently 91% on 4 L of O2. Denies shortness of breath. Chest x-ray as per my interpretation: Cardiomegaly, viral pneumonia AP Hypoxemic respiratory failure secondary to severe COVID-19 pneumonia Supplemental O2 Baseline ABG Decadron and Remdesivir indicated for severe COVID-19 pneumonia (Patient agreeable to Remdesivir and potential adverse reactions to Rx after discussion over the phone.) Will relay to AM provider.
[2021-05-08 04:45] LABS: Basophils # (auto) 0.02 K/uL (0-0.2); Basophils % (auto) 0.2 %; Eosinophils # (auto) 0.23 K/uL (0-0.5); Eosinophils % (auto) 2.5 %; Hematocrit (blood only) 32.2 % (42-52); Hemoglobin 11.2 g/dL (14.0-18.0); Immature Granulocytes # (auto) 0.04 K/uL (0.00-0.02); Immature Granulocytes % (auto) 0.4 %; Lymphocytes # (auto) 0.78 K/uL (1.2-3.4); Lymphocytes % (auto) 8.4 %; Mean Corpuscular Hemoglobin 27.5 pg (25-34); Mean Corpuscular Hgb Conc 34.8 g/dL (32-36); Mean Corpuscular Volume 78.9 fL (80-100); Mean Platelet Volume 9.2 fL (7.4-10.4); Monocytes # (auto) 0.92 K/uL (0.11-0.59); Monocytes % (auto) 9.9 %; Neutrophils # (auto) 7.29 K/uL (1.4-6.5); Neutrophils % (auto) 78.6 %; Platelet Count 436 K/uL (130-400); RDW Coefficient of Variation 14.4 % (11.5-14.5); RDW Standard Deviation 41.6 fL (36.4-46.3); Red Blood Count 4.08 M/uL (4.7-6.1); White Blood Count 9.28 K/uL (4.8-10.8)
[2021-05-08 04:56] LABS: Base Excess ABG -3.8 mEq/L (-9-1.8); HCO3 ABG 19 mmol/L (19-24); Oxygen Saturation ABG 93.7 % (90-95); PCO2 ABG 29 mmHg (35-46); PO2 ABG 66 mmHg (80-95); pH ABG 7.44 (7.35-7.45)
[2021-05-08 04:58] LABS: Allen Test Pos (Pos)
[2021-05-08] MEDS: dexAMETHasone 6 MG in SYRINGE 0 ML IV SCH (05:00)
[2021-05-08 05:07] LABS: Albumin Level 2.3 gm/dl (3.4-5.0); Calcium 8.5 mg/dl (8.5-10.1); Est GFR (Non-African American) 78.5 ml/min; Magnesium 1.9 mg/dl (1.8-2.4); Potassium 3.1 mmol/L (3.5-5.1)
[2021-05-08 05:23] LABS: Albumin Globulin Ratio 0.5 (0.9-2); Bilirubin,Total 0.8 mg/dl (0.2-1); C Reactive Protein 12.9 mg/dl (0-0.29); Globulin 4.5 gm/dl (2.5-4.0); Phosphorus 3.2 mg/dl (2.5-4.9); Total Protein 6.8 gm/dl (6.4-8.2)
[2021-05-08] MEDS ORDERED: REMDESIVIR 200 MG in SODIUM CHLORIDE 0.9% 210 ML IV ONE (05:30)
[2021-05-08] MEDS ORDERED: POTASSIUM CHLORIDE CRTAB 20 MEQ TABCR PO STA (06:20)
[2021-05-08] MEDS ORDERED: MAGNESIUM SULFATE / D5W 1 GM/100 ML BAG IV ONE (06:30)
[2021-05-08 07:16] LABS: Estimated Average Glucose 166 mg/dl; Hemoglobin A1C 7.4 % (4.5-5.6)
[2021-05-08] MEDS: SODIUM CHLORIDE 0.9% 10ML FLUSH IV SCH (08:11)
--- NOTE | 2021-05-08 08:19 | XRay Report ---
XR chest 1V portable HISTORY: 65 years-old Male low o2 acute hypoxia COMPARISON: Chest radiograph 05/05/2021, chest radiograph 05/04/2021 TECHNIQUE: Portable AP view of the chest FINDINGS: Cardiac silhouette is enlarged. Mild right hemidiaphragmatic elevation. No pneumothorax or large pleu ral effusion. Ill-defined bilateral right greater than left pulmonary opacities are redemonstrated in a subpleural predominant distribution, mildly progressed. Degenerative changes of the shoulders and spine. IMPRESSION: 1. Mildly progressed bilateral pulmonary opacities suggestive of viral pneumonia. 2. Cardiomegaly. ACT 112: Negative or not required by law. The above report was generated using voice recognition software. It may contain grammatical, syntax o r spelling errors. Electronically signed by: Clive Velazquez M.D. 05/08/2021 8:17 AM
[2021-05-08] MEDS: BENZONATATE 100 MG CAPSULE PO SCH ×3 (08:22→20:47)
[2021-05-08] MEDS: PREGABALIN 50 MG CAP PO SCH ×2 (08:22→20:47)
[2021-05-08] MEDS: guaiFENesin 600 MG TABCR PO SCH ×2 (08:23→20:48)
[2021-05-08] MEDS: INSULIN ASPART 100 UNITS/ML 3 ML PEN SC SCH ×4 (08:33→22:19)
[2021-05-08] MEDS: INSULIN GLARGINE SOLOSTAR 100 UNITS/ML 3 ML PEN SC SCH ×2 (08:34→22:19)
--- NOTE | 2021-05-08 13:38 | Hospitalist Progress Note ---
Date of Service May 08, 2021 Assessment & Plan (1) Pneumonia due to COVID-19 virus: Plan: Pneumonia present on chest x-ray. With worsening tachypnea and pleurisy and overall clinical picture, despite the fact patient is not hypoxic, will bring him in for observation. Encourage patient to prone. No indication for steroids or remdesivir at this time. Supportive care as needed with Motrin, cough syrup etc. notably here appears euvolemic on exam Has minimal cough and saturating normally on room air CRP is elevated at 13.2 0 Complains more cough but saturating normally on room air Desaturation events last night and has been on dexamethasone and remdesivir CRP level remains elevated at 12.90 We will continue current medications for now and if CRP is coming down tomorrow and he does not require any oxygen he can be discharged home Acute grievance Secondary to loss of his recently Sympathetic care Likely go home tomorrow following PT and OT evaluation (2) Hyponatremia: Plan: Sodium 129 probably related to poor p.o. intake. He received 500 cc of normal saline in the ER. Trend BMP. Supportive care during this Covid pneumonia illness. P.o. intake likely to be low especially with loss of taste sensation. Sodium level is 135 as on 05/06/2021 We will supplement potassium We will give more potassium IV-monitor PRP Sodium is 132 and potassium 2.1 (3) DMII (diabetes mellitus, type 2): Plan: Complicated by peripheral neuropathy. A1c -7.5. Hold p.o. medications and use basal bolus insulin while hospitalized. (4) DVT prophylaxis: Plan: Lovenox Full code Disposition-to Covid unit Admission and Anticipated Discharge Date Admission Date: May 06, 2021 Subjective 05/06/2021 The patient was seen and examined in medical telemetry unit and in the Covid room He is very anxious and upset that his yesterday Has been getting cough with shortness of breath on exertion Complaint chest pain with the cough 05/07/2021 The patient was seen and examined in medical telemetry unit and in the Covid room He remains weak and lethargic and is very depressed Has cough without any shortness of breath 05/08/2021 The patient was seen and examined in medical telemetry unit and in Covid room He has had episodes of shortness of breath with desaturation last night Remdesivir and dexamethasone have been started He has been feeling much better wants to go home Review of Systems Review of Systems: All systems reviewed and are unremarkable except as noted below Respiratory: Cough with shortness of breath on exertion Physical Exam Physical Exam: Sitting on a chair without any acute distress but is very anxious Constitutional: well developed, well nourished and + ill appearing Eyes: PERRL, conjunctivae normal, anicteric sclerae ENMT: external ear and nose normal, oropharynx normal Neck: trachea midline, no thyromegaly Respiratory: + cough; no respiratory distress Auscultation: + diminished lung sounds (At the bases); no crackles Gastrointestinal (Abdomen): Inspection/Auscultation: abdomen not distended Percussion/Palpation: abdomen soft; abdomen nontender Musculoskeletal: No acute arthritis in any joint Neurologic: Alert, awake and oriented x3 Results & Data Results & Data ([facility]) Vital Signs (Past 12 Hours) Vital Signs Temp Pulse Pulse Resp BP Pulse Ox 05/08/21 11:30 36.4 C L 77 16 121/67 92 05/08/21 08:20 93 05/08/21 08:17 36.5 C 79 18 120/70 97 05/08/21 07:53 72 05/08/21 06:00 85 05/08/21 03:36 36.5 C 90 20 133/72 90 Laboratory Results Short CBC 05/08/21 Range/Units 04:25 WBC 9.28 (4.8-10.8) K/uL Hgb 11.2 L (14.0-18.0) g/dL Hct 32.2 L (42-52) % Plt Count 436 H (130-400) K/uL BMP 05/08/21 04:25 Sodium 132 L Potassium 3.1 L Chloride 108 H Carbon Dioxide 21 BUN 14 Creatinine 0.99 Glucose 119 H Calcium 8.5 Liver Function 05/08/21 Range/Units 04:25 Total Bilirubin 0.8 (0.2-1) mg/dl AST 39 H (15-37) U/L ALT 27 (12-78) U/L Alkaline Phosphatase 86 (45-117) U/L Albumin 2.3 L (3.4-5.0) gm/dl Medications Administered Current Inpatient Medications Acetaminophen (Acetaminophen 325 Mg Tab) 650 mg PO Q4H PRN PRN Reason: Pain or Fever Stop: 10/31/21 13:48 Last Admin: 05/07/21 22:05 Dose: 650 mg Documented by: Hydrocodone Bitart/Acetaminophen (Hydrocodone/Acetamophen 5/325mg Tab) 1 tab PO Q6 PRN PRN Reason: Pain Stop: 05/19/21 13:48 Atorvastatin Calcium (Atorvastatin 40 Mg Tab) 80 mg PO HS [facility] Stop: 06/04/21 20:59 Last Admin: 05/07/21 22:03 Dose: 80 mg Documented by: Benzonatate (Benzonatate 100 Mg Capsule) 100 mg PO TID [facility] Stop: 06/05/21 13:59 Last Admin: 05/08/21 12:56 Dose: 100 mg Documented by: Dextrose (Dextrose 50% 50 Ml Syringe) 25 - 50 ml IV UD PRN; Protocol PRN Reason: Hypoglycemia Protocol Stop: 06/04/21 13:48 Glucagon (Glucagon For Inj 1 Mg Vial) 1 mg SQ UD PRN; Protocol PRN Reason: Hypoglycemia Protocol Stop: 06/04/21 13:48 Glucose (Glucose 10 Tabs/Tube) 4 - 8 tabs PO UD PRN; Protocol PRN Reason: Hypoglycemia Protocol Stop: 06/04/21 13:48 Glucose (Glucose 40% Gel 15 Gm Tube) 15 - 30 gm PO UD PRN; Protocol PRN Reason: Hypoglycemia Protocol Stop: 06/04/21 13:48 Guaifenesin (Guaifenesin 600 Mg Tabcr) 1,200 mg PO Q12 [facility] Stop: 06/05/21 20:59 Last Admin: 05/08/21 08:23 Dose: 1,200 mg Documented by: Dexamethasone 6 mg/ Syringe 1.5 mls @ 1 mls/min IV DAILY [facility] Stop: 06/07/21 04:29 Last Admin: 05/08/21 05:00 Dose: 1 mls/min Documented by: Remdesivir 100 mg/ Sodium (Chloride) 250 mls @ 250 mls/hr IV Q24H [facility]; Protocol Stop: 05/12/21 12:59 Insulin Aspart (Insulin Aspart 100 Units/Ml 3 Ml Pen) 0 units SC ACHS [facility] Stop: 06/04/21 13:48 Last Admin: 05/08/21 13:00 Dose: 17 units Documented by: Insulin Glargine (Insulin Glargine Solostar 100 Units/Ml 3 Ml Pen) 15 units SC BID [facility] Stop: 06/04/21 13:59 Last Admin: 05/08/21 08:34 Dose: 15 units Documented by: Miscellaneous (Carbohydrates For Hypoglycemia ) 15 - 30 gm PO UD PRN PRN Reason: Hypoglycemia Protocol Stop: 06/04/21 13:48 Ondansetron HCl (Ondansetron Inj 2 Mg/Ml 2 Ml Vial) 4 mg IV Q6H PRN PRN Reason: Nausea Stop: 06/04/21 13:48 Pregabalin (Pregabalin 50 Mg Cap) 50 mg PO BID [facility] Stop: 06/04/21 13:48 Last Admin: 05/08/21 08:22 Dose: 50 mg Documented by: Sodium Chloride (Sodium Chloride 0.9% 10ml Flush) 30 ml IV DAILY@1300 [facility] Stop: 05/12/21 13:01 Last Admin: 05/08/21 08:11 Dose: 30 ml Documented by:
[2021-05-08] MEDS: ATORVASTATIN 40 MG TAB PO SCH (20:48)
[2021-05-09 07:12] LABS: Basophils # (auto) 0.01 K/uL (0-0.2); Basophils % (auto) 0.1 %; Eosinophils # (auto) 0.16 K/uL (0-0.5); Eosinophils % (auto) 1.1 %; Hematocrit (blood only) 30.3 % (42-52); Hemoglobin 10.7 g/dL (14.0-18.0); Immature Granulocytes # (auto) 0.06 K/uL (0.00-0.02); Immature Granulocytes % (auto) 0.4 %; Lymphocytes # (auto) 0.65 K/uL (1.2-3.4); Lymphocytes % (auto) 4.4 %; Mean Corpuscular Hemoglobin 27.4 pg (25-34); Mean Corpuscular Hgb Conc 35.3 g/dL (32-36); Mean Corpuscular Volume 77.5 fL (80-100); Mean Platelet Volume 9.4 fL (7.4-10.4); Monocytes # (auto) 0.97 K/uL (0.11-0.59); Monocytes % (auto) 6.5 %; Neutrophils # (auto) 12.98 K/uL (1.4-6.5); Neutrophils % (auto) 87.5 %; Platelet Count 502 K/uL (130-400); RDW Coefficient of Variation 14.6 % (11.5-14.5); RDW Standard Deviation 41.5 fL (36.4-46.3); Red Blood Count 3.91 M/uL (4.7-6.1); White Blood Count 14.83 K/uL (4.8-10.8)
[2021-05-09 07:47] LABS: BUN Creatinine Ratio 20.2 (10-20); C Reactive Protein 12.2 mg/dl (0-0.29); Calcium 8.6 mg/dl (8.5-10.1); Creatinine Clr Calc Pharmacy 77.1 ml/min; Est GFR (African American) 102.1 ml/min; Est GFR (Non-African American) 88.1 ml/min; Magnesium 1.8 mg/dl (1.8-2.4); Phosphorus 3.3 mg/dl (2.5-4.9); Potassium 3.6 mmol/L (3.5-5.1)
[2021-05-09] MEDS: BENZONATATE 100 MG CAPSULE PO SCH ×2 (08:27→13:30)
[2021-05-09] MEDS: dexAMETHasone 6 MG in SYRINGE 0 ML IV SCH (08:27)
[2021-05-09] MEDS: guaiFENesin 600 MG TABCR PO SCH (08:27)
[2021-05-09] MEDS: PREGABALIN 50 MG CAP PO SCH (08:28)
[2021-05-09] MEDS: INSULIN ASPART 100 UNITS/ML 3 ML PEN SC SCH ×2 (08:34→12:40)
[2021-05-09] MEDS: INSULIN GLARGINE SOLOSTAR 100 UNITS/ML 3 ML PEN SC SCH (08:35)
[2021-05-09] MEDS ORDERED: INFLUENZA VACCINE HIGH DOSE PF 65+ 0.7 ML SYR IM ONE (10:00)
[2021-05-09] MEDS ORDERED: REMDESIVIR 100 MG in SODIUM CHLORIDE 0.9% 230 ML IV SCH (12:00)
--- NOTE | 2021-05-09 12:13 | Hospitalist Progress Note ---
Date of Service May 09, 2021 Assessment & Plan (1) Pneumonia due to COVID-19 virus: Plan: Pneumonia present on chest x-ray. With worsening tachypnea and pleurisy and overall clinical picture, despite the fact patient is not hypoxic, will bring him in for observation. Encourage patient to prone. No indication for steroids or remdesivir at this time. Supportive care as needed with Motrin, cough syrup etc. notably here appears euvolemic on exam Has minimal cough and saturating normally on room air CRP is elevated at 13.2 0 Complains more cough but saturating normally on room air Desaturation events last night and has been on dexamethasone and remdesivir CRP level remains elevated at 12.90 Clinically much better for the last 24 hours and has not been requiring any oxygen Denies any shortness of breath at rest and does not require any oxygen with am bulation He wants to go home and is very anxious about it He will be discharged home this afternoon Acute grievance Secondary to loss of his recently Sympathetic care He says that he will be better off going home (2) Hyponatremia: Plan: Sodium 129 probably related to poor p.o. intake. He received 500 cc of normal saline in the ER. Trend BMP. Supportive care during this Covid pneumonia illness. P.o. intake likely to be low especially with loss of taste sensation. Sodium level is 135 as on 05/06/2021 We will supplement potassium We will give more potassium IV-monitor PRP Sodium level is 136 and potassium 3.6 He was advised to drink fruit juice and more fluid at home (3) DMII (diabetes mellitus, type 2): Plan: Complicated by peripheral neuropathy. A1c -7.5. Hold p.o. medications and use basal bolus insulin while hospitalized. (4) DVT prophylaxis: Plan: Lovenox Full code Disposition-to Covid unit Admission and Anticipated Discharge Date Admission Date: May 06, 2021 Subjective 05/06/2021 The patient was seen and examined in medical telemetry unit and in the Covid room He is very anxious and upset that his yesterday Has been getting cough with shortness of breath on exertion Complaint chest pain with the cough 05/07/2021 The patient was seen and examined in medical telemetry unit and in the Covid room He remains weak and lethargic and is very depressed Has cough without any shortness of breath 05/08/2021 The patient was seen and examined in medical telemetry unit and in Covid room He has had episodes of shortness of breath with desaturation last night Remdesivir and dexamethasone have been started He has been feeling much better wants to go home 05/09/2021 The patient was seen and examined in medical telemetry unit in Covid room He has been feeling much better and did not require any more oxygen for more th an 24 hours He denies any symptoms except minimal cough He passed the 2 steps O2 saturation test and she desperately wants to go home today Review of Systems Review of Systems: All systems reviewed and are unremarkable except as noted below Respiratory: Cough with shortness of breath on exertion Physical Exam Physical Exam: Sitting on a chair without any acute distress but is very anxious Constitutional: well developed, well nourished and + ill appearing Eyes: PERRL, conjunctivae normal, anicteric sclerae ENMT: external ear and nose normal, oropharynx normal Neck: trachea midline, no thyromegaly Respiratory: + cough; no respiratory distress Auscultation: + diminished lung sounds (At the bases); no crackles Cardiovascular: Rate/Rhythm: regular rate and regular rhythm; not tachycardic Heart Sounds: normal S1 and normal S2; no murmur Extremities: no edema Gastrointestinal (Abdomen): Inspection/Auscultation: abdomen not distended Percussion/Palpation: abdomen soft; abdomen nontender Musculoskeletal: No acute arthritis in any joint Neurologic: Alert, awake and oriented x3. Very anxious Results & Data Results & Data ([facility]) Vital Signs (Past 12 Hours) Vital Signs Temp Pulse Pulse Pulse Pulse Pulse Resp 05/09/21 12:00 93 H 95 H 91 H 05/09/21 08:00 36.8 C 90 24 05/09/21 02:39 36.5 C 79 18 Resp Resp Resp BP Pulse Ox Pulse Ox Pulse Ox 05/09/21 12:00 18 19 18 92 91 05/09/21 08:00 109/64 90 05/09/21 02:39 123/72 90 Pulse Ox 05/09/21 12:00 93 05/09/21 08:00 05/09/21 02:39 Laboratory Results Short CBC 05/09/21 Range/Units 06:49 WBC 14.83 H (4.8-10.8) K/uL Hgb 10.7 L (14.0-18.0) g/dL Hct 30.3 L (42-52) % Plt Count 502 H (130-400) K/uL BMP 05/09/21 06:49 Sodium 136 Potassium 3.6 D Chloride 108 H Carbon Dioxide 17 L BUN 18 Creatinine 0.90 Glucose 110 H Calcium 8.6 Medications Administered Current Inpatient Medications Acetaminophen (Acetaminophen 325 Mg Tab) 650 mg PO Q4H PRN PRN Reason: Pain or Fever Stop: 06/04/21 13:48 Last Admin: 05/07/21 22:05 Dose: 650 mg Documented by: Hydrocodone Bitart/Acetaminophen (Hydrocodone/Acetamophen 5/325mg Tab) 1 tab PO Q6 PRN PRN Reason: Pain Stop: 05/19/21 13:48 Atorvastatin Calcium (Atorvastatin 40 Mg Tab) 80 mg PO HS GABRIELA Stop: 06/04/21 20:59 Last Admin: 05/08/21 20:48 Dose: 80 mg Documented by: Benzonatate (Benzonatate 100 Mg Capsule) 100 mg PO TID GABRIELA Stop: 06/05/21 13:59 Last Admin: 05/09/21 13:30 Dose: 100 mg Documented by: Dextrose (Dextrose 50% 50 Ml Syringe) 25 - 50 ml IV UD PRN; Protocol PRN Reason: Hypoglycemia Protocol Stop: 06/04/21 13:48 Glucagon (Glucagon For Inj 1 Mg Vial) 1 mg SQ UD PRN; Protocol PRN Reason: Hypoglycemia Protocol Stop: 06/04/21 13:48 Glucose (Glucose 10 Tabs/Tube) 4 - 8 tabs PO UD PRN; Protocol PRN Reason: Hypoglycemia Protocol Stop: 06/04/21 13:48 Glucose (Glucose 40% Gel 15 Gm Tube) 15 - 30 gm PO UD PRN; Protocol PRN Reason: Hypoglycemia Protocol Stop: 06/04/21 13:48 Guaifenesin (Guaifenesin 600 Mg Tabcr) 1,200 mg PO Q12 GABRIELA Stop: 06/05/21 20:59 Last Admin: 05/09/21 08:27 Dose: 1,200 mg Documented by: Dexamethasone 6 mg/ Syringe 1.5 mls @ 1 mls/min IV DAILY GABRIELA Stop: 06/07/21 04:29 Last Admin: 05/09/21 08:27 Dose: 1 mls/min Documented by: Remdesivir 100 mg/ Sodium (Chloride) 250 mls @ 250 mls/hr IV Q24H [facility]; Protocol Stop: 05/12/21 12:59 Last Infusion: 05/09/21 12:42 Dose: Infused Documented by: Insulin Aspart (Insulin Aspart 100 Units/Ml 3 Ml Pen) 0 units SC ACHS [facility] Stop: 06/04/21 13:48 Last Admin: 05/09/21 12:40 Dose: 13 units Documented by: Insulin Glargine (Insulin Glargine Solostar 100 Units/Ml 3 Ml Pen) 15 units SC BID [facility] Stop: 06/04/21 13:59 Last Admin: 05/09/21 08:35 Dose: 15 units Documented by: Miscellaneous (Carbohydrates For Hypoglycemia ) 15 - 30 gm PO UD PRN PRN Reason: Hypoglycemia Protocol Stop: 06/04/21 13:48 Ondansetron HCl (Ondansetron Inj 2 Mg/Ml 2 Ml Vial) 4 mg IV Q6H PRN PRN Reason: Nausea Stop: 06/04/21 13:48 Pregabalin (Pregabalin 50 Mg Cap) 50 mg PO BID [facility] Stop: 06/04/21 13:48 Last Admin: 05/09/21 08:28 Dose: 50 mg Documented by: Sodium Chloride (Sodium Chloride 0.9% 10ml Flush) 30 ml IV DAILY@1300 [facility] Stop: 05/12/21 13:01 Last Admin: 05/09/21 12:41 Dose: 30 ml Documented by:
[2021-05-09] MEDS: SODIUM CHLORIDE 0.9% 10ML FLUSH IV SCH (12:41)
--- NOTE | 2021-05-12 07:22 | Discharge Summary ---
Date of Service May 12, 2021 Admission HPI Per Admitting Provider Symptoms of COVID-19 began last week with shortness of breath, chest pain, fever and cough. Denies diarrhea, headache. Reports a loss of sense of taste and loss of appetite. No vomiting or nausea. Pleurisy present. Went to see his primary care doctor yesterday and received levofloxacin for pneumonia. He did take 1 dose. Tested positive for SARS-CoV-2 infection. Notably is also sick with symptoms at home and is wheelchair-bound. He did receive a Covid vaccination series. In the ER the patient was observed to be tachypneic. EKG reveals normal sinus rhythm. No electrolyte or metabolic abnormalities on work-up. D-dimer was elevated at 1500. A CT chest was performed revealing no evidence of pulmonary emboli. Admission Exam Per Admitting Provider Physical Exam: CONSTITUTIONAL: WNWD, vitals as above, generally ill- appearing, NAD EYES: EOMI bilaterally, PERRL, normal conjunctivae, no scleral icterus ENT: external ear and nose normal, oropharynx clear, MMM NECK: trachea midline RESPIRATORY: occasional crackles yumi at bases, no rales or wheezes, normal to slightly increased respiratory effort CARDIOVASCULAR: regular rate and rhythm, S1 and 2 heard without murmurs, gallops or rubs, no JVD, no peripheral edema CHEST: inspection of chest was normal GASTROINTESTINAL: soft, nontender, ND, no guarding MUSCULOSKELETAL: strength 5/5 throughout, head is normocephalic and atraumatic SKIN: warm and dry NEUROLOGIC: CN 2-12 grossly intact, no sensory deficit, normal cognition, normal speech, no tremor PSYCHIATRIC: alert cooperative and oriented to person, place and time. Principal Diagnosis Pneumonia due to COVID-19 virus infection, hyponatremia, type 2 diabetes, Discharge Exam Constitutional well developed, well nourished and + ill appearing Eyes PERRL, conjunctivae normal, anicteric sclerae ENMT external ear and nose normal, oropharynx normal Neck trachea midline, no thyromegaly Respiratory + cough; no respiratory distress Auscultation: + diminished lung sounds (At the bases); no crackles Cardiovascular Rate/Rhythm: regular rate and regular rhythm; not tachycardic Heart Sounds: normal S1 and normal S2; no murmur Extremities: no edema Gastrointestinal (Abdomen) Inspection/Auscultation: abdomen not distended Percussion/Palpation: abdomen soft; abdomen nontender Discharge Data Allergies Allergy/AdvReac Type Severity Reaction Status Date / Time No Known Allergies Allergy Unverified 05/04/21 23:29 Consultations 05/05/21 02:30 ED Decision to Admit Stat Ordered Studies 05/05/21 00:28 CT angio chest PE protocol Urgent Hospital Course (1) Pneumonia due to COVID-19 virus: Pneumonia present on chest x-ray. With worsening tachypnea and pleurisy and overall clinical picture, despite the fact patient is not hypoxic, will bring him in for observation. Encourage patient to prone. No indication for steroids or remdesivir at this time. Supportive care as needed with Motrin, cough syrup etc. notably here appears euvolemic on exam Has minimal cough and saturating normally on room air CRP is elevated at 13.2 0 Complains more cough but saturating normally on room air Desaturation events last night and has been on dexamethasone and remdesivir CRP level remains elevated at 12.90 Clinically much better for the last 24 hours and has not been requiring any oxygen Denies any shortness of breath at rest and does not require any oxygen with ambulation He wants to go home and is very anxious about it He will be discharged home this afternoon Acute grievance Secondary to loss of his recently Sympathetic care He says that he will be better off going home (2) Hyponatremia: Sodium 129 probably related to poor p.o. intake. He received 500 cc of normal saline in the ER. Trend BMP. Supportive care during this Covid pneumonia illness. P.o. intake likely to be low especially with loss of taste sensation. Sodium level is 135 as on 05/06/2021 We will supplement potassium We will give more potassium IV-monitor PRP Sodium level is 136 and potassium 3.6 He was advised to drink fruit juice and more fluid at home (3) DMII (diabetes mellitus, type 2): Complicated by peripheral neuropathy. A1c -7.5. Hold p.o. medications and use basal bolus insulin while hospitalized. (4) DVT prophylaxis: Lovenox Full code Disposition-to Covid unit Total Time Total Time Spent Total Time Spent (In Minutes): 35 minutes Discharge Plan Discharge Items Patient Disposition: Home - Self-Care Reason For Visit: TACHYPNEA, COVID PNEUMONIA Discharge Diagnosis: Pneumonia due to COVID-19 virus infection, hyponatremia, type 2 diabetes, Condition on Discharge: Fair Activity: Resume your previous activity Non-emergency contact: Primary Care Provider Call non-emergency contact if: you have any medication questions and your symptoms worsen Follow-up/Referrals: Tanisha Goodrich DO [Primary Care Provider] - (Date & Time 05/16/2021 10:00 AM Provider Tanisha Goodrich DO Department [facility] PLEASE NOTE THAT THIS IS A TELEPHONE APPOINTMENT. YOUR PROVIDER WILL CALL YOU AT THE APPOINTMENT TIME. IF YOU HAVE ANY QUESTIONS REGARDING THIS APPOINTMENT, PLEASE CALL ) Diet: Carb Consistent or DM2 Addtl Attending Provider Instructions: Please take precautions to avoid falls Please finish the course of steroid Take it easy for the next few days to weeks Low blood sugar may run a little higher as long as you are on dexamethasone. Keep yourself isolated for the next 5 days as indicated below: Home Isolation COVID-19 Instructions The following information about Home Isolation is from the CDC Website: https://www.cdc.gov/coronavirus/2019-ncov/hcp/htxxzstd-itaetag-mtdduj.html Stay home except to get medical care People who are mildly ill with COVID-19 are able to isolate at home during their illness. You should restrict activities outside your home, except for getting medical care. Do not go to work, school, or public areas. Avoid using public transportation, ride-sharing, or taxis. Separate yourself from other people and animals in your home People: As much as possible, you should stay in a specific room and away from other people in your home. Also, you should use a separate bathroom, if available. Animals: You should restrict contact with pets and other animals while you are sick with COVID-19, just like you would around other people. Although there have not been reports of pets or other animals becoming sick with COVID-19, it is still recommended that people sick with COVID-19 limit contact with animals until more information is known about the virus. When possible, have another member of your household care for your animals while you are sick. If you are sick with COVID-19, avoid contact with your pet, including petting, snuggling, being kissed or licked, and sharing food. If you must care for your pet or be around animals while you are sick, wash your hands before and after you interact with pets and wear a face mask. Call ahead before visiting your doctor If you have a medical appointment, call the healthcare provider and tell them that you have or may have COVID-19. This will help the healthcare providers office take steps to keep other people from getting infected or exposed. Wear a face mask You should wear a face mask when you are around other people (e.g., sharing a room or vehicle) or pets and before you enter a healthcare providers office. If you are not able to wear a face mask (for example, because it causes trouble breathing), then people who live with you should not stay in the same room with you, or they should wear a face mask if they enter your room. Cover your coughs and sneezes Cover your mouth and nose with a tissue when you cough or sneeze. Throw used tissues in a lined trash can. Immediately wash your hands with soap and water for at least 20 seconds or, if soap and water are not available, clean your hands with an alcohol-based hand vamp maker that contains at least 60% alcohol. Clean your hands often Wash your hands often with soap and water for at least 20 seconds, especially after blowing your nose, coughing, or sneezing; going to the bathroom; and before eating or preparing food. If soap and water are not readily available, use an alcohol-based hand vamp maker with at least 60% alcohol, covering all surfaces of your hands and rubbing them together until they feel dry. Soap and water are the best option if hands are visibly dirty. Avoid touching your eyes, nose, and mouth with unwashed hands. Avoid sharing personal household items You should not share dishes, drinking glasses, cups, eating utensils, towels, or bedding with other people or pets in your home. After using these items, they should be washed thoroughly with soap and water. Clean all high-touch surfaces everyday High touch surfaces include counters, tabletops, doorknobs, bathroom fixtures, toilets, phones, keyboards, tablets, and bedside tables. Also, clean any surfaces that may have blood, stool, or body fluids on them. Use a household cleaning spray or wipe, according to the label instructions. Labels contain instructions for safe and effective use of the cleaning product including precautions you should take when applying the product, such as wearing gloves and making sure you have good ventilation during use of the product. Monitor your symptoms Seek prompt medical attention if your illness is worsening (e.g., difficulty breathing).Beforeseeking care, call your healthcare provider and tell them that you have, or are being evaluated for, COVID-19. Put on a face mask before you enter the facility. These steps will help the healthcare providers office to keep other people in the office or waiting room from getting infected or exposed. Ask your healthcare provider to call the local or state health department. Persons who are placed under active monitoring or facilitated self- monitoring should follow instructions provided by their local health department or occupational health professionals, as appropriate. When working with your local health department check their available hours. If you have a medical emergency and need to call 911, notify the dispatch personnel that you have, or are being evaluated for COVID-19. If possible, put on a face mask before emergency medical services arrive. Discontinuing home isolation Patients with confirmed COVID-19 should remain under home isolation precautions until the risk of secondary transmission to others is thought to be low. The decision to discontinue home isolation precautions should be made on a [id number] basis, in consultation with healthcare providers and [facility] and local health departments. Pending Studies at Discharge: No Stand-Alone Forms: [facility], Smoking Cessation Medications and DC Order Prescriptions: New benzonatate [Tessalon Perles] 100 mg Capsule 100 mg PO TID 10 Days Qty: 30 RF: 0 guaifenesin [Mucinex] 600 mg Tablet Extended Release 12hr 1,200 mg PO Q12 5 Days Qty: 20 RF: 0 dexamethasone 6 mg tablet 6 mg PO DAILY Qty: 7 RF: 0 Continued pregabalin 50 mg capsule 50 mg PO BID RF: 0 atorvastatin 80 mg tablet 80 mg PO HS RF: 0 hydrocodone-acetaminophen 5-325 mg tablet 1 tab PO Q6 PRN (Reason: Pain) RF: 0 glipizide 5 mg tablet 10 mg PO BID RF: 0 Januvia 100 mg tablet 100 mg PO DAILY RF: 0 metformin 1,000 mg tablet 1,000 mg PO BID RF: 0 Discontinued levofloxacin 750 mg tablet 750 mg PO DAILY RF: 0 Discharge Orders: Discharge Order (Routine); Ordered 05/09/21 Ordered By: Jonelle Alegria/Other Patient Handouts: A1C, Managing Type 2 Diabetes Admission Data Admit Date/Time: 05/06/21 14:36 Attending Provider: Jonelle Ridley Admit Provider: Kayla Coffey Primary Care Provider: Tanisha Goodrich Other Providers: Quentin Haddad ; Kayla Coffey ; Lilly Brown I. Other Interventions: Discharge Summary Assessment (RN) Last Done: 05/09/21 14:23
--- NOTE | 2021-05-16 14:27 | Coding Query ---
To promote full compliance with coding requirements relating to patient care, provider participation is requested in all cases of professor of business uncertainty. Please assist us with the question(s) below: Coding Question(s): The diagnosis below was documented in the 05/[address] Rosas then subsequently fell off all further documentation. Please indicate if it is still a possible diagnosis or ruled out. Physician's Response(s): Admission and subsequent progress notes did not document any hypoxic respiratory failure. Transient desaturation may happen with Pneumonia and does not last long. HYPOXEMIC RESPIRATORY FAILURE ( ) Diagnosed and POA ( ) Diagnosed and not POA ( ) Ruled out ( + ) Other (please specify) Thank You, Barrie Eastman, [facility]
== END 2021-05-09 15:15 | disposition home or self-care (01) | DRG 177 ==
LOC: EDINP 20:55 → ED 20:55 → SUATTDRO 05-05 03:45 → 2N 05-05 15:35